=== PATIENT | female | born 1980 | race Caucasian/White ===

== ENCOUNTER 2017-03-12 09:10 | Emergency (ER) | payer OTHER ==
--- NOTE | ~2017-03-12 | US134 ---
[facility] A Service of [facility] & [facility] RADIOLOGY TEXT RESULTS PATIENT: LAUREANO MUNSON LOCATION: [facility] : [birth year] UNIT #: [id number] AGE: [address]: Donna Andres SEX: F ORDER DR: [id number] [place] [address] [place], [place] [address] [id number] MR#: [id number] Acc #: [id number] NAME: LAUREANO MUNSON : 1980 SEX: F STUDY DATE/TIME: 03/12/2017 11:38 UNIT: [facility] ROOM: STUDY DESCRIPTION: US Transvaginal Attending Physician: Donna Andres P.A.-C. Ordering Physician: Donna Andres P.A.-C. Primary Care Physician: Lillian Byers M.D. MEDICAL IMAGING REPORT This report is preliminary unless electronic signature is present EXAM Transvaginal pelvic ultrasound. COMPARISON None INDICATIONS 36-year-old female with left lower quadrant abdominal and pelvic pain radiating to back for 16 hours. History of renal calculi. Tubal ligation in 2012. FINDINGS Uterus measures 8.2 cm x 3.6 x 5.5 cm. Endometrial stripe thickness measures up to approximately 8 mm. There is a small nabothian cyst of the cervix. Doppler flow is noted in both ovaries. Right ovary measures 2.5 cm x 4.1 cm x 2.8 cm and contains multiple internal follicles as well as a dominant cyst measuring up to 2.1 cm x 1.7 cm x 1.7 cm. This does not have internal color-flow. There are multiple normal follicles within the left ovary which measures up to 3.1 cm x 2.7 cm x 2.6 cm. IMPRESSION 1. No evidence of ovarian torsion. No free fluid in the pelvis. 2. Dominant cyst in the right ovary with multiple normal ovarian follicles bilaterally. 3. Small nabothian cyst. Otherwise normal exam. Dictated by... Gt Yoder M.D. THIS IS AN ELECTRONICALLY VERIFIED REPORT Gt Yoder M.D. at 03/17/2017 1:37 PM BLM/cmm [facility] A Service of [facility] & [facility] RADIOLOGY TEXT RESULTS PATIENT: LAUREANO MUNSON LOCATION: [facility] : [birth year] UNIT #: [id number] AGE: [address]: Donna Andres SEX: F ORDER DR: TD: 03/12/2017 15:18 JOB #: [id number] MEDICAL IMAGING REPORT Page 1 of 1 COPY
[2017-03-12 09:50] LABS: URINE SOURCE CLEAN CATCH
[2017-03-12 09:54] LABS: BASOPHIL% 0.8 % (0-2.5); EOSINOPHIL# 0.1 X10e3 (0-0.7); EOSINOPHIL% 1.4 % (0.0-7.0); HEMOGLOBIN 13.8 gm/dL (12.0-16.0); LYMPHOCYTE# 1.8 X10e3 (1.0-3.5); LYMPHOCYTE% 38.1 % (17.0-45.0); MEAN CELL VOLUME 94.5 FL (83-96); MEAN CORPUSCULAR HEMOGLOBIN 31.1 PG (28-34); MEAN CORPUSCULAR HGB CONC 32.9 g/dL (30-36); MEAN PLATELET VOLUME 8.1 FL (6.5-11.5); MONOCYTE# 0.4 X10e3 (0-1.0); MONOCYTE% 8.8 % (3.0-12.0); NEUTROPHIL# 2.5 X10e3 (1.5-7.1); NEUTROPHIL% 50.9 % (40-75); PLATELET COUNT 201 X10e3 (140-420); RED BLOOD COUNT 4.44 X10e (3.90-5.30); RED CELL DISTRIBUTION WIDTH 12.6 % (11.0-15.5); WHITE BLOOD COUNT 4.9 X10e3 (4.0-10.5)
[2017-03-12 09:55] LABS: URINE APPEARANCE CLEAR; URINE BILIRUBIN NEG (NEG); URINE BLOOD NEG (NEG); URINE COLOR YELLOW; URINE GLUCOSE NEG (NEG); URINE KETONE NEG (NEG); URINE LEUKOCYTE ESTERASE NEG (NEG); URINE NITRATE NEG (NEG); URINE PH 7.5 (5-8); URINE PROTEIN NEG (NEG); URINE SPECIFIC GRAVITY 1.002 (1.003-1.035); URINE UROBILINOGEN 0.2 MG/DL (NEG)
[2017-03-12 09:57] LABS: DIFF IND NO
[2017-03-12 10:04] LABS: CULTURE INDICATED? NO
[2017-03-12 10:26] LABS: BUN/CREATININE RATIO 11.25; CALCIUM SERUM 9.7 mg/dL (8.4-10.2); CREATININE SERUM 0.8 mg/dL (0.6-1.4); GLOM FILT RATE Estimated 94.9 mL/min (>60); POTASSIUM 4.1 mmol/L (3.5-5.1)
[2017-03-14 15:43] LABS: CHLAMYDIA TRACH Not Detected (Not Detected); N GONOR Not Detected (Not Detected)
== END 2017-03-12 13:19 | disposition home or self-care (01) ==
LOC: CED 09:10
PROVIDERS: Physician Assistant
DX: N83.291 Other ovarian cyst, right side (principal); F31.9 Bipolar disorder, unspecified; Z90.49 Acquired absence of other specified parts of digestive tract; Z98.51 Tubal ligation status; Z88.8 Allergy status to other drugs, medicaments and biological substances; Z88.0 Allergy status to penicillin
CPT/HCPCS: 36415; 76830; 80048; 81003; 84703; 85025; 87491; 87591; 87808; 87905; 96374; 96375; 99284; J1885; J2405